=== PATIENT | male | born 1965 | race Caucasian/White ===

== ENCOUNTER 2020-12-31 09:57 | Outpatient (CLI) | payer BC, OTHER | END 2020-12-31 09:58 | disposition home or self-care (01) | LOC: CSHCT 09:57 | PROVIDERS: ATTEND Radiology Radiation Oncology | DX: C34.90 Malignant neoplasm of unspecified part of unspecified bronchus or lung (principal); C79.31 Secondary malignant neoplasm of brain; C34.12 Malignant neoplasm of upper lobe, left bronchus or lung | CPT/HCPCS: 70553; 71260; 74177; 78306; A9503 ==

== ENCOUNTER 2022-06-02 08:25 | Outpatient (CLI) | payer MEDICARE ==
[2022-06-02] MEDS ORDERED: Iopamidol 300 61% 100 ML VIAL FS ONE (08:58)
== END 2022-06-02 08:26 | disposition home or self-care (01) ==
LOC: CSHCT 08:25
PROVIDERS: ATTEND Internal Medicine Hematology & Oncology
DX: C34.90 Malignant neoplasm of unspecified part of unspecified bronchus or lung (principal)
CPT/HCPCS: 71260; 74177

== ENCOUNTER 2022-09-29 08:52 | Outpatient (CLI) | payer MEDICARE ==
[~2022-09-29 08:52] MED LIST: Iopamidol 300 61% 100 ML VIAL FS ONE
== END 2022-09-29 08:53 | disposition home or self-care (01) ==
LOC: CSHCT 08:52
PROVIDERS: ATTEND Internal Medicine Hematology & Oncology
DX: C34.90 Malignant neoplasm of unspecified part of unspecified bronchus or lung (principal)
CPT/HCPCS: 71260; 74177

== ENCOUNTER 2023-02-03 08:49 | Outpatient (CLI) | payer MEDICARE ==
[2023-02-03] MEDS ORDERED: Iopamidol 300 61% 100 ML VIAL FS ONE (10:50)
== END 2023-02-03 08:50 | disposition home or self-care (01) ==
LOC: CSHCT 08:49
PROVIDERS: ATTEND Internal Medicine Hematology & Oncology
DX: C34.90 Malignant neoplasm of unspecified part of unspecified bronchus or lung (principal)
CPT/HCPCS: 71260; 74177

== ENCOUNTER 2023-06-18 08:24 | Outpatient (CLI) | payer MEDICARE | END 2023-06-18 08:25 | disposition home or self-care (01) | LOC: CSHCT 08:24 | PROVIDERS: ATTEND Internal Medicine Hematology & Oncology | DX: C34.90 Malignant neoplasm of unspecified part of unspecified bronchus or lung (principal); Z98.890 Other specified postprocedural states | CPT/HCPCS: 71260; 74177 ==

== ENCOUNTER 2023-10-30 08:33 | Outpatient (CLI) | payer MEDICARE ==
[2023-10-30] MEDS ORDERED: Iopamidol 300 61% 100 ML VIAL FS ONE (12:43)
== END 2023-10-30 08:34 | disposition home or self-care (01) ==
LOC: CSHCT 08:33
PROVIDERS: ATTEND Internal Medicine Hematology & Oncology
DX: C34.12 Malignant neoplasm of upper lobe, left bronchus or lung (principal)
CPT/HCPCS: 71260; 74177; Q9967

== ENCOUNTER 2024-02-04 08:38 | Outpatient (CLI) | payer MEDICARE | END 2024-02-04 08:39 | disposition home or self-care (01) | LOC: CSHMRI 08:38 | PROVIDERS: ATTEND Radiology Radiation Oncology | DX: C79.31 Secondary malignant neoplasm of brain (principal); C34.90 Malignant neoplasm of unspecified part of unspecified bronchus or lung | CPT/HCPCS: 70553; 76376 ==

== ENCOUNTER 2025-02-10 13:00 | Outpatient (CLI) | payer MEDICARE ==
[2025-02-10 13:57] LABS: Estimated GFR - POC 76.0
== END 2025-02-10 13:01 | disposition home or self-care (01) ==
LOC: CSHCT 13:00
PROVIDERS: ATTEND Radiology Radiation Oncology
DX: C34.12 Malignant neoplasm of upper lobe, left bronchus or lung (principal); T66.XXXA Radiation sickness, unspecified, initial encounter; Z79.899 Other long term (current) drug therapy; G93.9 Disorder of brain, unspecified
CPT/HCPCS: 70553; 71260; 74177; 76376; 82565